=== PATIENT | female | born 1970 | race Caucasian/White ===

== ENCOUNTER 2019-02-26 15:09 | Emergency (ER) | payer SELFPAY ==
[2019-02-26] MEDS ORDERED: Acetaminophen/HYDROcodone 325-5 MG Tab PO ONE (16:41)
--- NOTE | 2019-02-26 16:43 | EDM.PDOC ---
ED HPI GENERAL MEDICAL PROBLEM - General Chief Complaint: Lower Extremity Injury/Pain Stated Complaint: LEFT ANKLE PAIN (BROKEN?) Time Seen by Provider: 02/26/19 16:37 Source of Information: Reports: Patient History Limitations: Reports: No Limitations - History of Present Illness INITIAL COMMENTS - FREE TEXT/NARRATIVE: pt arrived with pain in the left ankle. [facility] [employer] [employer] ans she slipped on the water and twisted her ankle. She had immediate pain. She has some swelling laterally. Onset: Today, Sudden Duration: Hour(s): Location: Reports: Lower Extremity, Left Associated Symptoms: Reports: No Other Symptoms Left Ankle Pain Score (Numeric/FACES): 8 - Related Data Allergies Allergy/AdvReac Type Severity Reaction Status Date / Time codeine Allergy Nausea Verified 02/26/19 15:28 Penicillins Allergy Nausea Verified 02/26/19 15:28 Home Meds: Home Meds busPIRone [Buspar] 20 mg PO DAILY 02/26/19 [History] lamoTRIgine [Lamictal XR] 300 mg PO DAILY 02/26/19 [History] traZODone 200 mg PO BEDTIME 02/26/19 [History] Past Medical History [employer] History: Reports: Psychiatric History: Reports: Bipolar, Depression, Psych Hospitalization(s), Suicide Attempt Oncologic (Cancer) History: Reports: Cervix - Past Surgical History HEENT Surgical History: Reports: Tonsillectomy Female Surgical History: Reports: Section Musculoskeletal Surgical History: Reports: Other (See Below) Other Musculoskeletal Surgeries/Procedures:: trigger finger surgery Social & Family History - Tobacco Use Smoking Status *Q: Current Every Day Smoker Years of Tobacco use: 34 Packs/Tins Daily: 0.5 - Caffeine Use Caffeine Use: Reports: Soda - Recreational Drug Use Recreational Drug Use: No Review of Systems - Review of Systems Review Of Systems: See Below Constitutional: Reports: No Symptoms Eyes: Reports: No Symptoms Ears: Reports: No Symptoms Nose: Reports: No Symptoms Mouth/Throat: Reports: No Symptoms Respiratory: Reports: No Symptoms Cardiovascular: Reports: No Symptoms GI/Abdominal: Reports: No Symptoms Genitourinary: Reports: No Symptoms Musculoskeletal: Reports: Other (pain in left ankle. she slipped on the water in the lobby at [employer]. ) ED EXAM, GENERAL - Physical Exam Exam: See Below Free Text/Narrative:: Pt arrived with pain in the left ankle Exam Limited By: No Limitations General Appearance: Alert, Anxious, Mild Distress Extremities: Other (pt has swelling laterally of the left ankle. ) Course - Vital Signs Last Recorded V/S: Last Vital Signs Temp 34.8 C L 02/26/19 15:31 Pulse 98 02/26/19 15:31 Resp 17 02/26/19 15:31 BP 131/88 02/26/19 15:31 Pulse Ox 98 02/26/19 15:31 - Orders/Labs/Meds Meds: Medications Discontinued Medications Generic Name Dose Route Start Last Admin Trade Name Freq PRN Reason Stop Dose Admin Hydrocodone Bitart/Acetaminophen 1 tab 02/26/19 16:41 02/26/19 16:55 [place] 325-5 Mg PO 02/26/19 16:42 1 tab ONETIME ONE Administration - Re-Assessments/Exams Free Text/Narrative Re-Assessment/Exam: 02/26/19 16:42 xray of the ankle was positive for a very minimally displaced fracture of the fibula distal Departure - Departure Time of Disposition: 16:43 Disposition: Home, Self-Care 01 Condition: Fair Clinical Impression: Fracture of fibula - Discharge Information Instructions: Fibular Fracture Rehab-SportsMed Referrals: PCP,None [Primary Care Provider] - Forms: ED Department Discharge Care Plan Goals: cam walker, when sitting elevate leg. Pt can only do a job at work where she can be sitting. motrin 600mg q6h as needed for pain, crutches. absolutely no weight bearing. appt with Dr Roberts on Saturday. Sepsis Event Note - Evaluation Sepsis Screening Result: No Definite Risk - Focused Exam Date Exam was Performed: 03/02/19 Time Exam was Performed: 07:36
--- NOTE | 2019-02-26 17:01 | CRLCR ---
Indication: Injury. Technique: Three views of the left ankle. Comparison: None Findings: A fracture of the distal fibula is identified. The ankle mortise is intact. The talar dome is intact. Impression: Distal fibular fracture, minimally displaced. Dictated by Chitra Pires MD @ Feb 26 2019 4:59PM Signed by Dr. Chitra Pires @ Feb 26 2019 4:59PM
== END 2019-02-26 17:04 | disposition home or self-care (01) ==
LOC: JP.ED 15:09
DX: S82.832A Other fracture of upper and lower end of left fibula, initial encounter for closed fracture (principal); F32.9 Major depressive disorder, single episode, unspecified; F17.210 Nicotine dependence, cigarettes, uncomplicated; Z88.5 Allergy status to narcotic agent; Z88.0 Allergy status to penicillin; Z79.899 Other long term (current) drug therapy; W18.40XA Slipping, tripping and stumbling without falling, unspecified, initial encounter; X50.1XXA Overexertion from prolonged static or awkward postures, initial encounter; Y99.0 Civilian activity done for income or pay
CPT/HCPCS: 73610; 99283; A9270